=== PATIENT | female | born 1980 | race Caucasian/White ===

== ENCOUNTER 2018-01-22 13:05 | Emergency (ER) | payer OTHER ==
[2018-01-22] MEDS: LIDOCAINE 2% W/EPIN INJ 20ML **PRES FREE INJ (13:30)
[2018-01-22] MEDS: ADACEL/BOOSTRIX VACCINE (DIPHTH/PERTUSS/ACELL/TETANUS)0.5ML SYR (90715) IM (13:33)
== END 2018-01-22 14:24 | disposition home or self-care (01) ==
LOC: M ED 13:05
DX: S91.312A Laceration without foreign body, left foot, initial encounter (principal); X58.XXXA Exposure to other specified factors, initial encounter; Y92.099 Unspecified place in other non-institutional residence as the place of occurrence of the external cause; Y93.9 Activity, unspecified; Y99.9 Unspecified external cause status; Z79.82 Long term (current) use of aspirin; Z79.899 Other long term (current) drug therapy
CPT/HCPCS: 90715

== ENCOUNTER 2018-06-08 10:37 | Emergency (ER) | payer OTHER | END 2018-06-08 13:28 | disposition home or self-care (01) | LOC: M ED 10:37 | DX: J20.9 Acute bronchitis, unspecified (principal); I50.9 Heart failure, unspecified; I10 Essential (primary) hypertension; K21.9 Gastro-esophageal reflux disease without esophagitis; F41.9 Anxiety disorder, unspecified; F43.10 Post-traumatic stress disorder, unspecified; G47.30 Sleep apnea, unspecified; Z95.0 Presence of cardiac pacemaker; Z79.82 Long term (current) use of aspirin; Z79.01 Long term (current) use of anticoagulants; Z79.899 Other long term (current) drug therapy | CPT/HCPCS: 71046 ==

== ENCOUNTER 2018-07-04 06:43 | Emergency (ER) | payer OTHER ==
[2018-07-04] MEDS: ALBUTEROL SULFATE 2.5 MG/0.5 ML INH NEB SOLN NEB (07:14)
[2018-07-04 07:31] LABS: BASO # 0.1 10^3/uL (0.0-0.2); BASO % 0.6 % (0.0-1.0); EOS # 0.3 10^3/uL (0.0-0.50); EOS % 2.9 % (0.0-3.0); HEMATOCRIT 35.7 % (36.0-47.0); IMMATURE GRANULOCYTE % 0.6 % (0-3.0); LYMPH # 2.3 10^3/uL (1.5-4.5); LYMPH % 20.8 % (24.0-44.0); MEAN CORPUSCULAR HEMOGLOBIN 28.6 pg (27.0-33.0); MEAN CORPUSCULAR HGB CONC 33.6 g/dl (32.0-36.5); MEAN CORPUSCULAR VOLUME 85.2 fl (80.0-96.0); MONO # 0.6 10^3/uL (0.0-0.8); MONO % 5.2 % (0.0-5.0); NEUTROPHILS # 7.6 10^3/uL (1.8-7.7); NEUTROPHILS % 69.9 % (36.0-66.0); PLATELET COUNT, AUTOMATED 197 10^3/uL (150-450); RED BLOOD COUNT 4.19 10^6/uL (4.00-5.40); RED CELL DISTRIBUTION WIDTH 14.5 % (11.5-14.5); WHITE BLOOD COUNT 10.9 10^3/uL (4.0-10.0)
[2018-07-04 07:43] LABS: INR 2.54; PROTHROMBIN TIME 27.9 SECONDS (12.1-14.4)
[2018-07-04 07:44] LABS: PARTIAL THROMBOPLASTIN TIME 52.6 SECONDS (25.4-37.6)
[2018-07-04 08:05] LABS: ALBUMIN 3.4 GM/DL (3.2-5.2); ALKALINE PHOSPHATASE 67 U/L (45-117); ALT/SGPT 30 U/L (12-78); ANION GAP 9 MEQ/L (8-16); AST/SGOT 21 U/L (7-37); BILIRUBIN,DIRECT 0.1 MG/DL (0.0-0.2); BILIRUBIN,TOTAL 0.4 MG/DL (0.2-1.0); BLOOD UREA NITROGEN 13 MG/DL (7-18); CALCIUM LEVEL 8.1 MG/DL (8.5-10.1); CARBON DIOXIDE LEVEL 24 MEQ/L (21-32); CHLORIDE LEVEL 108 MEQ/L (98-107); CPK CREATINE PHOSPHOKINASE 91 U/L (26-192); CREATININE FOR GFR 1.26 MG/DL (0.55-1.30); GLOMERULAR FILTRATION RATE 50.3 (>60); GLUCOSE, FASTING 99 MG/DL (70-100); LIPASE 84 U/L (73-393); NT-PRO BNP 1335 PG/ML (<125); POTASSIUM SERUM 4.3 MEQ/L (3.5-5.1); SODIUM LEVEL 141 MEQ/L (136-145); TOTAL PROTEIN 6.5 GM/DL (6.4-8.2); TROPONIN I < 0.02 NG/ML (< 0.10)
[2018-07-04 08:55] LABS: FREE THYROXINE INDEX 2.7 % (1.3-4.8); T UPTAKE 29 % (30-39); THYROXINE (T4) 9.3 UG/DL (4.5-12.0)
[2018-07-04] MEDS ORDERED: ISOVUE-370 76% 100ML VIAL (Q9967) As Ordered (09:59)
== END 2018-07-04 12:33 | disposition home or self-care (01) ==
LOC: M ED 06:43
DX: J40 Bronchitis, not specified as acute or chronic (principal); I11.0 Hypertensive heart disease with heart failure; I50.9 Heart failure, unspecified; F43.10 Post-traumatic stress disorder, unspecified; G47.30 Sleep apnea, unspecified; Z99.89 Dependence on other enabling machines and devices; Z95.0 Presence of cardiac pacemaker; Z79.899 Other long term (current) drug therapy; Z79.82 Long term (current) use of aspirin; Z79.01 Long term (current) use of anticoagulants
CPT/HCPCS: Q9967

== ENCOUNTER 2018-09-05 18:38 | Emergency (ER) | payer OTHER ==
[~2018-09-05] VITALS: Ht 154.9 cm; Wt 132.3 kg
[~2018-09-05 18:38] MED LIST: ASPI81TA24; ATEN50TA2; AUGM875T28 PO; BACI500O8 TOP; BUPR1TAB52; CEFU50TA PO; CLON0.5T8; IRON27TA2 PO; LORA-243; LOSA50TA88; PARO40TA2; POTA20TA6; PRENTAB7 PO; PREV1CAP PO; TESS100C PO; TORS20TA2; WARF05TA PO
[2018-09-05] MEDS ORDERED: CLON0.5T8 (18:46)
[2018-09-05] MEDS ORDERED: BUPR1TAB52 (18:46)
[2018-09-05] MEDS ORDERED: JENC0.35 (18:46)
[2018-09-05] MEDS ORDERED: diphenhydrAMINE INJ 50MG/ML VIAL (J1200) IV STA (19:24)
[2018-09-05 19:30] LABS: BASO # 0.1 10^3/uL (0.0-0.2); BASO % 0.6 % (0.0-1.0); EOS # 0.3 10^3/uL (0.0-0.50); EOS % 3.4 % (0.0-3.0); HEMOGLOBIN 13.5 g/dl (12.0-15.5); LYMPH % 25.7 % (24.0-44.0); MEAN CORPUSCULAR HEMOGLOBIN 28.2 pg (27.0-33.0); MEAN CORPUSCULAR HGB CONC 33.8 g/dl (32.0-36.5); MEAN CORPUSCULAR VOLUME 83.5 fl (80.0-96.0); MONO # 0.6 10^3/uL (0.0-0.8); MONO % 7.2 % (0.0-5.0); NEUTROPHILS % 62.5 % (36.0-66.0); PLATELET COUNT, AUTOMATED 197 10^3/uL (150-450); RED BLOOD COUNT 4.79 10^6/uL (4.00-5.40); WHITE BLOOD COUNT 7.9 10^3/uL (4.0-10.0)
[2018-09-05] MEDS ORDERED: NS 1,000 ML IV ONE (19:30)
[2018-09-05] MEDS ORDERED: ACETAMINOPHEN 325 MG TAB PO ONE (19:30)
[2018-09-05] MEDS ORDERED: METOCLOPRAMIDE INJ 10MG/2ML VIAL (J2765) IV ONE (19:30)
[2018-09-05] MEDS ORDERED: dexameTHASONE 20 MG/5 ML VIAL (J1100) IV ONE (19:45)
[2018-09-05 19:57] LABS: BLOOD UREA NITROGEN 9 MG/DL (7-18); CALCIUM LEVEL 7.8 MG/DL (8.5-10.1); CARBON DIOXIDE LEVEL 24 MEQ/L (21-32); CHLORIDE LEVEL 107 MEQ/L (98-107); CREATININE FOR GFR 0.75 MG/DL (0.55-1.30); GLOMERULAR FILTRATION RATE > 60.0 (>60); GLUCOSE, FASTING 89 MG/DL (70-100); POTASSIUM SERUM 4.1 MEQ/L (3.5-5.1); SODIUM LEVEL 140 MEQ/L (136-145)
--- NOTE | 2018-09-05 20:14 | REPVR ---
EXAM: CT Head Without Contrast EXAM DATE/TIME: 09/05/2018 7:40 PM CLINICAL HISTORY: 37 years old, female; Pain; Headache; Additional info: New ROB, lightheaded TECHNIQUE: Axial computed tomography images of the head/brain without contrast. All CT scans at this facility use at least one of these dose optimization techniques: automated exposure control; mA and/or kV adjustment per patient size (includes targeted exams where dose is matched to clinical indication); or iterative reconstruction. COMPARISON: No relevant prior studies available. FINDINGS: Brain: Normal. No hemorrhage. No significant white matter disease. No edema. Ventricles: Normal. No ventriculomegaly. Bones/joints: Unremarkable. No acute fracture. Sinuses: Visualized sinuses are unremarkable. No acute sinusitis. Mastoid air cells: Visualized mastoid air cells are unremarkable. No mastoid effusion. Soft tissues: Unremarkable. IMPRESSION: No acute intracranial abnormality. Electronically signed by: Dejuan Webster On 09/05/2018 20:14:36 PM
[2018-09-05] MEDS ORDERED: REGL10TA6 PO (20:42)
[2018-09-05 20:48] VITALS: BP 113/55
== END 2018-09-05 20:55 | disposition home or self-care (01) ==
LOC: M ED 18:38
DX: R51 Headache (principal); I11.0 Hypertensive heart disease with heart failure; I50.9 Heart failure, unspecified; K21.9 Gastro-esophageal reflux disease without esophagitis; Z95.0 Presence of cardiac pacemaker; Z95.2 Presence of prosthetic heart valve; Z79.899 Other long term (current) drug therapy; Z79.82 Long term (current) use of aspirin; Z79.01 Long term (current) use of anticoagulants
CPT/HCPCS: 70450; 80048; 85025; 96374; 96375; 99284; J1100; J1200; J2765

== ENCOUNTER → 2019-10-10 | Outpatient (CLI) | payer OTHER ==
[~2019-10-10] MED LIST changes: +CLON0.5T2; -CLON0.5T8; +JENC0.35; +REGL10TA6 PO
--- NOTE | 2019-10-10 14:16 | REP ---
REASON: Dyspnea on exertion. COMPARISON: Multiple, latest 07/04/2018. Note is again made of previous median sternotomy. The dual chamber bipolar pacemaker device is unchanged. There is global cardiomegaly status quo. There is no change in the appearance of the lung garrett. No acute patchy parenchymal opacities or pleural effusions have developed. Mild chronic left CP angle blunting is noted status quo. There is no significant change in the appearance of the imaged osseous structures. IMPRESSION: No significant change with findings as described above. Electronically Signed by Ulices Layton DO 10/10/2019 02:46 P
== END ==
LOC: M LRY 13:32
PROVIDERS: ATTEND Nurse Practitioner Family
DX: R06.09 Other forms of dyspnea (principal)

== ENCOUNTER → 2020-11-06 | Outpatient (CLI) | payer OTHER | LOC: M LABSMTC 12:13 | PROVIDERS: ATTEND Internal Medicine Cardiovascular Disease | DX: Z11.52 Encounter for screening for COVID-19 (principal) ==

== ENCOUNTER 2021-01-18 16:16 | Emergency (ER) | payer OTHER ==
[~2021-01-18] VITALS: Ht 154.9 cm; Wt 135.8 kg
--- NOTE | 2021-01-18 17:06 | REP ---
INDICATION: CHEST PAIN. COMPARISON: 10/10/2019 a two view exam TECHNIQUE: Portable FINDINGS: There is cardiomegaly accentuated by technique status quo. There is a dual chamber bipolar pacemaker device which is unchanged. Note is again made of previous median sternotomy. The lung garrett are stable. There are no acute patchy parenchymal opacities or pleural effusions. There is no change in the osseous structures. IMPRESSION: Stable chronic changes. There is no evidence of acute cardiopulmonary disease. <Electronically signed by Ulices Layton > 01/18/21 [id number]
[2021-01-18 17:17] LABS: BASO # 0.1 10^3/uL (0.0-0.2); BASO % 0.6 % (0.0-1.0); EOS # 0.3 10^3/uL (0.0-0.5); HEMATOCRIT 37.5 % (36.0-47.0); HEMOGLOBIN 12.6 g/dl (12.0-15.5); LYMPH # 3.1 10^3/uL (1.5-5.0); LYMPH % 21.8 % (24.0-44.0); MEAN CORPUSCULAR HEMOGLOBIN 28.9 pg (27.0-33.0); MEAN CORPUSCULAR HGB CONC 33.6 g/dl (32.0-36.5); MONO # 0.7 10^3/uL (0.0-0.8); MONO % 4.6 % (2.0-8.0); NEUTROPHILS # 9.9 10^3/uL (1.5-8.5); PLATELET COUNT, AUTOMATED 210 10^3/uL (150-450); RED BLOOD COUNT 4.36 10^6/uL (4.00-5.40); WHITE BLOOD COUNT 14.2 10^3/uL (4.0-10.0)
[2021-01-18 17:54] LABS: ALBUMIN 3.7 GM/DL (3.2-5.2); ALT/SGPT 37 U/L (12-78); BILIRUBIN,DIRECT 0.2 MG/DL (0.0-0.2); BILIRUBIN,TOTAL 0.7 MG/DL (0.2-1.0); BLOOD UREA NITROGEN 13 MG/DL (7-18); CALCIUM LEVEL 8.6 MG/DL (8.5-10.1); CARBON DIOXIDE LEVEL 26 MEQ/L (21-32); CHLORIDE LEVEL 106 MEQ/L (98-107); CK-MB VALUE MASS < 1.0 NG/ML (<3.6); CPK CREATINE PHOSPHOKINASE 72 U/L (26-192); CREATININE FOR GFR 0.95 MG/DL (0.55-1.30); FREE T4 1.14 NG/DL (0.76-1.46); GLOMERULAR FILTRATION RATE > 60.0 (>58); GLUCOSE, FASTING 75 MG/DL (70-100); LIPASE 62 U/L (73-393); MB/CK RELATIVE INDEX 1.39 (< OR =4); POTASSIUM SERUM 3.9 MEQ/L (3.5-5.1); SODIUM LEVEL 140 MEQ/L (136-145); TROPONIN I < 0.02 NG/ML (< 0.10)
[2021-01-18 19:46] VITALS: BP 124/76
--- NOTE | 2021-01-19 14:25 | ECGEPIP ---
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
== END 2021-01-18 19:46 | disposition home or self-care (01) ==
LOC: M ED 16:16
DX: R07.89 Other chest pain (principal); Z95.0 Presence of cardiac pacemaker; I11.0 Hypertensive heart disease with heart failure; K21.9 Gastro-esophageal reflux disease without esophagitis; Z79.01 Long term (current) use of anticoagulants; Z79.82 Long term (current) use of aspirin; Z79.899 Other long term (current) drug therapy

== ENCOUNTER → 2021-03-12 | Outpatient (CLI) | payer OTHER ==
[~2021-03-12] MED LIST changes: -ASPI81TA24; +ASPI81TA24 PO; -ATEN50TA2; +ATEN50TA2 PO; +BUPR1TAB52 PO; -JENC0.35; +JENC0.35 PO; -PARO40TA2; +PARO40TA2 PO; -POTA20TA6; +POTA20TA6 PO; -TORS20TA2; +TORS20TA2 PO; +WARF-20 PO; +WARF-22 PO
== END ==
LOC: M LABSMTC 13:55
PROVIDERS: ATTEND Anesthesiology
DX: Z01.812 Encounter for preprocedural laboratory examination (principal); Z20.822 Contact with and (suspected) exposure to COVID-19

== ENCOUNTER 2021-03-17 06:04 | Day surgery (SDC) | payer OTHER ==
[~2021-03-17] VITALS: Ht 154.9 cm; Wt 137.4 kg
[~2021-03-17 06:04] MED LIST changes: +LIDOCAINE 1% MDV 20ML VIAL SQ PRN; +LR 1,000 ML IV ONE
[2021-03-17] MEDS ORDERED: CETACAINE SPRAY 5GM As Ordered ONE (07:08)
[2021-03-17] MEDS ORDERED: LIDOCAINE VISCOUS 2% SOLN 15ML UDC As Ordered ONE (07:08)
[2021-03-17 07:11] LABS: INR 2.28; PROTHROMBIN TIME 25.5 SECONDS (12.7-14.5)
[2021-03-17 07:12] LABS: PARTIAL THROMBOPLASTIN TIME 57.2 SECONDS (25.9-37.0)
[2021-03-17] MEDS ORDERED: MIDAZOLAM INJ 2MG/2ML VIAL (J2250 PER 1MG) As Ordered ONE (07:12)
[2021-03-17] MEDS ORDERED: LIDOCAINE 2% 100MG/5ML SDV (FOR ANES.) As Ordered ONE (07:12)
[2021-03-17] MEDS ORDERED: ONDANSETRON 4MG/2ML VIAL As Ordered ONE (07:12)
[2021-03-17] MEDS ORDERED: dexameTHASONE 4 MG/ML 1ML VIAL (J1100 PER 1MG) As Ordered ONE (07:12)
[2021-03-17] MEDS ORDERED: propofoL 500 MG/50 ML VIAL As Ordered ONE (07:12)
[2021-03-17] MEDS ORDERED: fentaNYL 100 MCG/2 ML INJECTION (J3010) As Ordered ONE (07:13)
[2021-03-17 08:40] VITALS: BP 113/57
--- NOTE | 2021-03-18 12:44 | T-ECHO ---
TRANSESOPHAGEAL ECHO DATE: 03/17/2021 REFERRING PHYSICIAN: Rich Powell M.D. PRIMARY CARE PHYSICIAN: Booker Mcgraw D.O. DIAGNOSIS: Tricuspid insufficiency. POSTPROCEDURE DIAGNOSIS: Moderate tricuspid insufficiency, muscular ventriculoseptal defect, stenosis, increased gradient across the aortic prosthetic valve. ANESTHESIOLOGIST: Giovani Toribio CRNA. BRIEF HISTORY: Mrs. Anne is a 40-year-old female who has a complicated cardiac history. 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 On transthoracic study, it was noted that she had substantial tricuspid insufficiency. I performed the study to look at the tricuspid valve in more detail and evaluate the severity of the lesion. The nature of the procedure was explained to the patient on an outpatient basis. I went over the potential complications, indications and alternatives with the patient and also again shortly before the procedure. She previously signed the appropriate consent and I went over that again today. PROCEDURE NOTE: Procedure was performed in the operating room. The patient presented in a fasting condition. After appropriate time out was taken and all the appropriate monitors were applied. Her posterior pharynx was anesthetizes using viscous Lidocaine and Cetacaine spray. She was then positioned in the left lateral decubitus position. Bite block was placed and secured by elastic tape. After anesthesiology administered sedation, a transesophageal echocardiogram (ELTON) probe was introduced into the esophagus and stomach without difficulty. After all images were obtained, it was withdrawn. There were no immediate complications and patient tolerated the procedure well. FINDINGS: Left ventricle has normal systolic function, estimated left ventricular ejection fraction (LVEF) 60-65%. No segmental wall motion abnormalities are appreciated. Mitral valve has normal anatomy. By color Doppler imaging, there is trace mitral insufficiency. Left atrial appendages are relatively deep and free of thrombi. There is normal flow in both left-sided and right-sided pulmonary veins. There is a mechanical prosthesis in the aortic position. It has normal mobility. There is trivial insufficiency of the valve that is likely physiologic. By color Doppler and continuous wave Doppler imaging, there is increased gradient across the valve (peak gradient 56, mean gradient 30 mmHg). Tricuspid valve appears structurally intact. By color Doppler imaging, there is approximately moderate insufficiency. Calculated gradient between the right ventricle and right atrium and systole is 36 mmHg. It appears that the TR is caused by the right ventricular pacing lead that is crossing the tricuspid valve and precluding its proper closure. Pulmonic valve was poorly visualized, but based on limited views, it appears normal. Interatrial septum is intact based on 2D and color Doppler imaging. Superior and inferior vena cava are not particularly dilated and appropriately collapses with inspiration, arguing against elevated central venous pressure. Limited views of thoracic aorta are unremarkable. CONCLUSIONS: 1. Preserved left ventricular systolic function. 2. Normal function of mitral valve. 3. Mechanical prosthesis in aortic position with functional insufficiency and increased gradient (mean gradient 30 mmHg). 4. Moderate tricuspid insufficiency, likely due to presence of right ventricular pacing lead. 5. Trivial ventricular septal defect in muscular portion of the septum. 6. Intact atrial septum. 7. Left atrial appendage free of thrombus. 8. Normal flow and pulmonary veins. 9. Normal thoracic aorta. COMMENTS: I do not believe that any intervention on either the ventricle septum defect or tricuspid insufficiency is warranted. We should focus on proper anticoagulation and medical management. This was conveyed to the patient.
== END 2021-03-17 08:55 | disposition home or self-care (01) ==
LOC: M SDC 06:04
PROVIDERS: ATTEND Internal Medicine Cardiovascular Disease
DX: I36.1 Nonrheumatic tricuspid (valve) insufficiency (principal); Z95.0 Presence of cardiac pacemaker; Z95.2 Presence of prosthetic heart valve; Q21.0 Ventricular septal defect; I10 Essential (primary) hypertension; K21.9 Gastro-esophageal reflux disease without esophagitis; F43.10 Post-traumatic stress disorder, unspecified; F41.9 Anxiety disorder, unspecified; Z88.1 Allergy status to other antibiotic agents; Z79.01 Long term (current) use of anticoagulants; Z79.82 Long term (current) use of aspirin; Z79.899 Other long term (current) drug therapy
CPT/HCPCS: 36415; 81025; 85610; 85730; 93312; J1100; J2250; J2405; J3010

== ENCOUNTER 2022-06-04 10:40 | Emergency (ER) | payer OTHER ==
[~2022-06-04] VITALS: Ht 154.9 cm; Wt 138.6 kg
[~2022-06-04 10:40] MED LIST changes: -LIDOCAINE 1% MDV 20ML VIAL SQ PRN; +LOSA50TA28; -LOSA50TA88; -LR 1,000 ML IV ONE; +POTA-151 PO; -POTA20TA6 PO
[2022-06-04 11:31] LABS: BASO # 0.1 10^3/uL (0.0-0.2); BASO % 0.6 % (0.0-1.0); EOS # 0.2 10^3/uL (0.0-0.5); EOS % 1.8 % (0.0-3.0); HEMATOCRIT 39.7 % (36.0-47.0); HEMOGLOBIN 13.1 g/dl (12.0-15.5); LYMPH # 2.2 10^3/uL (1.5-5.0); LYMPH % 18.2 % (24.0-44.0); MEAN CORPUSCULAR HEMOGLOBIN 28.4 pg (27.0-33.0); MEAN CORPUSCULAR VOLUME 86.1 fl (80.0-96.0); MONO # 0.5 10^3/uL (0.0-0.8); MONO % 4.5 % (2.0-8.0); NEUTROPHILS # 8.9 10^3/uL (1.5-8.5); NEUTROPHILS % 74.5 % (36.0-66.0); PLATELET COUNT, AUTOMATED 214 10^3/uL (150-450); RED BLOOD COUNT 4.61 10^6/uL (4.00-5.40); WHITE BLOOD COUNT 11.9 10^3/uL (4.0-10.0)
[2022-06-04 11:50] LABS: HCG, SERUM QUALITATIVE NEGATIVE (NEGATIVE)
[2022-06-04 12:07] LABS: CK-MB VALUE MASS < 1.0 NG/ML (<3.6); CPK CREATINE PHOSPHOKINASE 65 U/L (26-192); MB/CK RELATIVE INDEX 1.54 (< OR =4)
[2022-06-04 12:52] LABS: ALBUMIN 3.5 GM/DL (3.2-5.2); ALT/SGPT 27 U/L (12-78); BILIRUBIN,DIRECT 0.2 MG/DL (0.0-0.2); BILIRUBIN,TOTAL 0.6 MG/DL (0.2-1.0); BLOOD UREA NITROGEN 11 MG/DL (7-18); CALCIUM LEVEL 8.4 MG/DL (8.5-10.1); CARBON DIOXIDE LEVEL 25 MEQ/L (21-32); CHLORIDE LEVEL 107 MEQ/L (98-107); CREATININE FOR GFR 0.88 MG/DL (0.55-1.30); GLOMERULAR FILTRATION RATE > 60.0 (>58); GLUCOSE, FASTING 100 MG/DL (70-100); LIPASE 77 U/L (73-393); NT-PRO BNP 651 PG/ML (<125); POTASSIUM SERUM 3.7 MEQ/L (3.5-5.1); SODIUM LEVEL 139 MEQ/L (136-145); THYROID STIMULATING HORMONE 0.924 uIU/ML (0.358-3.740); TOTAL PROTEIN 6.7 GM/DL (6.4-8.2)
[2022-06-04] MEDS ORDERED: ISOVUE-370 76% 100ML VIAL As Ordered ONE (14:13)
[2022-06-04 14:49] LABS: INR 2.58; PROTHROMBIN TIME 28.1 SECONDS (12.5-14.5)
[2022-06-04 14:50] LABS: PARTIAL THROMBOPLASTIN TIME 51.3 SECONDS (24.8-34.2)
[2022-06-04 15:46] VITALS: BP 110/60
== END 2022-06-04 15:47 | disposition home or self-care (01) ==
LOC: M ED 10:40
DX: I50.20 Unspecified systolic (congestive) heart failure (principal); B34.8 Other viral infections of unspecified site; I25.2 Old myocardial infarction; G47.33 Obstructive sleep apnea (adult) (pediatric); I10 Essential (primary) hypertension; F41.9 Anxiety disorder, unspecified; F32.A Depression, unspecified; Z86.73 Personal history of transient ischemic attack (TIA), and cerebral infarction without residual deficits; Z91.048 Other nonmedicinal substance allergy status; Z79.82 Long term (current) use of aspirin; Z79.811 Long term (current) use of aromatase inhibitors; Z79.01 Long term (current) use of anticoagulants; Z79.899 Other long term (current) drug therapy
CPT/HCPCS: 36415; 71046; 71275; 80048; 80076; 82550; 82553; 83690; 83880; 84439; 84443; 84703; 85025; 85610; 85730; 87486; 87581; 87633; 87798; 93005; 99284; Q9967

== ENCOUNTER 2023-05-28 08:45 | Day surgery (SDC) | payer OTHER ==
[~2023-05-28] VITALS: Ht 154.9 cm; Wt 130.5 kg
[~2023-05-28 08:45] MED LIST changes: +ACET650T61 PO; +CALC PO; +D32000CA PO; +MAG PO; +NS 1,000 ML IV ONE; +PRAV10TA3 PO; +ZINC PO
[2023-05-28] MEDS ORDERED: LIDOCAINE 2% 100MG/5ML SDV (FOR ANES.) As Ordered ONE (09:13)
[2023-05-28] MEDS ORDERED: fentaNYL 100 MCG/2 ML INJECTION As Ordered ONE (09:13)
[2023-05-28] MEDS ORDERED: propofoL 500 MG/50 ML VIAL As Ordered ONE (09:13)
[2023-05-28 11:09] VITALS: TEMP 96.7
[2023-05-28 11:30] VITALS: BP 114/56; O2SAT 96
== END 2023-05-28 11:40 | disposition home or self-care (01) ==
LOC: M OPP 08:45
PROVIDERS: ATTEND Internal Medicine Gastroenterology
DX: K29.51 Unspecified chronic gastritis with bleeding (principal); K64.8 Other hemorrhoids; K21.9 Gastro-esophageal reflux disease without esophagitis; I10 Essential (primary) hypertension; I42.9 Cardiomyopathy, unspecified; E78.00 Pure hypercholesterolemia, unspecified; G47.30 Sleep apnea, unspecified; Z79.899 Other long term (current) drug therapy; Z79.82 Long term (current) use of aspirin; Z87.891 Personal history of nicotine dependence
CPT/HCPCS: 43239; 45378; 88305; J3010